=== PATIENT | male | born 1985 | race Caucasian/White ===

== ENCOUNTER 2019-07-18 20:22 | Emergency (ER) | payer OTHER ==
[2019-07-18] MEDS ORDERED: Diazepam TAB(*) 5 MG PO ONE (21:12)
--- NOTE | 2019-07-18 21:15 | ED ---
Seizure - HPI Summary HPI Summary: Patient complains of probable seizure while at [facility]. Denies prior history of seizures. Currently taking doxycycline 1 month for Lyme disease. Event was witnessed by who states patient convulsed his limbs, screwed up his face and had his eyes closed for unknown period of time. Episode self resolved, and after returning to consciousness patient did not recognize his or his surroundings for "a while". Patient is alert and oriented here in the ED, denies any prior symptoms. Also admits to chronic EtOH as he was working at a [employer] and told recently. States he has not had a drink for the past 2 days. Denies tremors, hallucinations, N/V, diaphoresis, abdominal pain, body aches. Patient states he has gone days before without drinking without issue. States he has been drinking more recently since he lost his job. Denies fever, cough, sore throat, CP, SOB, N/V/V abdominal pain, change in urine , change in BM. Medical history is Lyme disease, anxiety, panic attacks. Admits to marijuana use from a regulated dispensary. Denies recreational drug use. - History Of Current Complaint Chief Complaint: EDSeizure Time Seen by Provider: 07/18/19 20:55 Hx Obtained From: Patient, Family/Pension Consultant Onset/Duration: Sudden Onset, Lasting Minutes Severity Of Seizure: Self-Limited Location Of Seizure: All Extremities Aggravating Factor(s): Nothing Alleviating Factor(s): Spontaneous Resolution Associated Signs And Symptoms: Negative PMH/Surg Hx/FS Hx/Imm Hx Endocrine/Hematology History: Denies: Hx Anticoagulant Therapy Cardiovascular History: Denies: Hx Pacemaker/ICD History: Denies: Hx Dialysis Sensory History: Denies: Hx Eye Prosthesis Opthamlomology History: Denies: Hx Legally Blind EENT History: Denies: Hx Deafness Neurological History: Denies: Hx Dementia Psychiatric History: Reports: Hx Anxiety - Immunization History Immunizations Up to Date: Yes Infectious Disease History: No Infectious Disease History: Denies: Traveled Outside the [place] in Last 30 Days - Family History Known Family History: Positive: Non-Contributory - Social History Alcohol Use: None Substance Use Type: Reports: None Smoking Status (MU): Never Smoked Tobacco Review of Systems Constitutional: Negative Eyes: Negative ENT: Negative Cardiovascular: Negative Respiratory: Negative Gastrointestinal: Negative Genitourinary: Negative Musculoskeletal: Negative Skin: Negative Neurological: Negative Psychological: Normal All Other Systems Reviewed And Are Negative: Yes Physical Exam - Summary Physical Exam Summary: Neuro exam normal. Small laceration to lateral left tongue. Otherwise normal physical exam. Triage Information Reviewed: Yes Vital Signs On Initial Exam: Initial Vitals Temp Pulse Resp BP Pulse Ox 99.9 F 118 18 142/85 99 07/18/19 20:26 07/18/19 20:26 07/18/19 20:26 07/18/19 20:26 07/18/19 20:26 Vital Signs Reviewed: Yes Appearance: Positive: Well-Appearing Skin: Positive: Warm Head/Face: Positive: Normal Head/Face Inspection Eyes: Positive: Normal ENT: Positive: Other - Small laceration to lateral left tongue. Dental: Negative: Dental Fracture @, Bleeding Neck: Positive: Supple Respiratory/Lung Sounds: Positive: Clear to Auscultation Cardiovascular: Positive: Normal Abdomen Description: Positive: Nontender Musculoskeletal: Positive: Normal Neurological: Positive: Normal Psychiatric: Positive: Normal AVPU Assessment: Alert - Jermain Coma Scale Best Eye Response: 4 - Spontaneous Best Motor Response: 6 - Obeys Commands Best Verbal Response: 5 - Oriented Coma Scale Total: 15 Procedures - Sedation Patient Received Moderate/Deep Sedation with Procedure: No Diagnostics - Vital Signs Vital Signs Temp Pulse Resp BP Pulse Ox 07/18/19 20:26 99.9 F 118 18 142/85 99 - Laboratory Result Diagrams: 07/18/19 21:32 07/18/19 21:32 Lab Statement: Any lab studies that have been ordered have been reviewed, and results considered in the medical decision making process. Course/Dx - Course Course Of Treatment: Patient complains of probable seizure while at [facility]. Denies prior history of seizures. Currently taking doxycycline 1 month for Lyme disease. Event was witnessed by who states patient convulsed his limbs, screwed up his face and had his eyes closed for unknown period of time. Episode self resolved, and after returning to consciousness patient did not recognize his or his surroundings for "a while". Patient is alert and oriented here in the ED, denies any prior symptoms. Also admits to chronic EtOH as he was working at a [employer] and told recently. States he has not had a drink for the past 2 days. Denies tremors, hallucinations, N/V, diaphoresis, abdominal pain, body aches. Patient states he has gone days before without drinking without issue. States he has been drinking more recently since he lost his job. Denies fever, cough, sore throat, CP, SOB, N/V/ V abdominal pain, change in urine, change in BM. Medical history is Lyme disease, anxiety, panic attacks. Admits to marijuana use from a regulated dispensary. Denies recreational drug use. Vital signs within normal limits. Labs unremarkable. EtOH level normal. CT brain negative. EKG sinus rhythm, rate of 87, normal P axis. Likely seizure secondary to alcohol withdrawal. Patient has no other symptoms of tremor, diaphoresis, hallucinations, headache. Patient alert and oriented, calm and interactive. Patient given Valium 5 mg by mouth here in the ED. Patient wants to detox from alcohol. Rx for Librium taper for the next 4 days. Patient has been advised he cannot drink while taking Librium. Patient states he will comply. is pharmacist, states she understands. - Diagnoses Provider Diagnoses: Seizure, H/O ETOH abuse Discharge ED - Sign-Out/Discharge Documenting (check all that apply): Patient Departure - Discharge Plan Condition: Stable Disposition: HOME Prescriptions: chlordiazePOXIDE CAP* [Librium CAP*] 25 mg PO SEE INSTRUCTIONS 4 Days #13 cap MDD 6 tabs Patient Education Materials: Abuse of Alcohol (ED), Alcohol Withdrawal (ED) Referrals: Johann Tang MD [Primary Care Provider] - Additional Instructions: Take Librium taper as directed. Do not drink alcohol while taking Librium taper. Return to the ED for any new or worsening symptoms. Day 1: 50 mg every 8 hours Day 2: 25mg every 6h Day 3: 25mg twice daily Day 4: 25mg at night - Billing Disposition and Condition Condition: STABLE Disposition: Home
[2019-07-18 21:41] LABS: ABS Basophils 0.1 10^3/ul (0-0.2); ABS Lymphocytes 0.5 10^3/ul (1.0-4.8); ABS Monocytes 0.6 10^3/ul (0-0.8); ABS Neutrophils 9.3 10^3/ul (1.5-7.7); Eosinophil % 0.3 %; Hematocrit 42 % (42-52); Hemoglobin 14.4 g/dL (14.0-18.0); Lymphocyte % 4.3 %; Mean Corpuscular HGB Conc 34 g/dL (31-36); Mean Corpuscular Hemoglobin 32 pg (27-31); Mean Corpuscular Volume 93 fL (80-94); Mean Platelet Volume 7.2 fL (7.4-10.4); Nucleated Red Blood Cells % 0.2; Platelet Count 190 10^3/uL (150-450); Red Cell Distribution Width 13 % (10-15); White Blood Count 10.5 10^3/uL (3.5-10.8)
[2019-07-18 21:58] LABS: Albumin 4.4 g/dL (3.2-5.2); Albumin/Globulin Ratio 1.6 (1-3); BUN/Creatinine Ratio 8.7 (8-20); C Reactive Protein 1.31 mg/L (<8.01); Calcium 9.2 mg/dL (8.6-10.3); EGFR African American 100.8 (>60); EGFR Non-African American 83.3 (>60); Globulin 2.8 g/dL (2-4); Magnesium 2.1 mg/dL (1.9-2.7); Potassium 3.5 mmol/L (3.5-5.0); Total Bilirubin 0.7 mg/dL (0.2-1.0); Total Protein 7.2 g/dL (6.4-8.9)
[2019-07-18 22:17] LABS: Alcohol < 10 mg/dL (<10)
[2019-07-18 22:32] LABS: TSH (Thyroid Stimulating Horm) 2.36 mcIU/mL (0.34-5.60)
[2019-07-18 23:07] VITALS: BP 130/86
== END 2019-07-18 22:45 | disposition home or self-care (01) ==
LOC: ED 20:22
DX: R56.9 Unspecified convulsions (principal); F41.9 Anxiety disorder, unspecified; A69.20 Lyme disease, unspecified; Z79.899 Other long term (current) drug therapy
CPT/HCPCS: 36415; 70450; 80053; 80320; 83735; 84443; 85025; 86140; 93005; 99283; A9270-GY; G0480

== ENCOUNTER 2020-12-26 16:38 | Inpatient (IN) ==
[2020-12-26] MEDS ORDERED: diPHENhydraMINE 25 mg TAB PO ONE (17:38)
[2020-12-26 21:16] LABS: ABS Basophils 0.1 10^3/ul (0-0.2); ABS Lymphocytes 0.8 10^3/ul (1.0-4.8); ABS Monocytes 0.6 10^3/ul (0-0.8); ABS Neutrophils 6.5 10^3/ul (1.5-7.7); Eosinophil % 0.1 %; Hematocrit 40 % (42-52); Hemoglobin 13.7 g/dL (14.0-18.0); Lymphocyte % 10.5 %; Mean Corpuscular HGB Conc 34 g/dL (31-36); Mean Corpuscular Hemoglobin 30 pg (27-31); Mean Corpuscular Volume 87 fL (80-94); Mean Platelet Volume 8.5 fL (7.4-10.4); Platelet Count 208 10^3/uL (150-450); Red Cell Distribution Width 14 % (10-15)
[2020-12-26 21:19] LABS: Urine Appearance Clear; Urine Bilirubin Negative (Negative); Urine Blood Negative (Negative); Urine Color Straw; Urine Glucose Negative (Negative); Urine Ketones Negative (Negative); Urine Nitrite Negative (Negative); Urine Protein Negative (Negative); Urine Specific Gravity 1.009 (1.002-1.030); Urine Urobilinogen Negative (Negative)
[2020-12-26 21:29] LABS: ALT 22 U/L (7-52); AST 32 U/L (13-39); Albumin 4.6 g/dL (3.2-5.2); Alkaline Phosphatase 57 U/L (34-104); Anion Gap 8 mmol/L (2-11); Blood Urea Nitrogen 15 mg/dL (6-24); CO2 Carbon Dioxide 28 mmol/L (22-32); Calcium 9.1 mg/dL (8.6-10.3); Chloride 103 mmol/L (101-111); EGFR African American 97.4 (>60); EGFR Non-African American 80.5 (>60); Globulin 2.3 g/dL (2-4); Glucose 90 mg/dL (70-100); Potassium 3.7 mmol/L (3.5-5.0); Sodium 139 mmol/L (135-145); Total Protein 6.9 g/dL (6.4-8.9); Urine Benzodiazepine Screen None Detected (None Detect); Urine Cannabinoids Screen Presumptive Positive (None Detect); Urine Opiates Screen None Detected (None Detect)
[2020-12-26 21:40] LABS: Acetaminophen < 15 mcg/mL; Alcohol, S < 10 mg/dL (<10); Salicylate < 2.50 mg/dL (<30)
[2020-12-26 21:56] LABS: TSH Ultra Thyroid Stim Horm 0.41 mcIU/mL (0.34-5.60)
[2020-12-27] MEDS ORDERED: Nicotine PATCH 21 MG/24 HR PATCH ONE (08:42)
[2020-12-27] MEDS: Nicotine PATCH 21 MG/24 HR PATCH TRANSDERM SCH ×3 (08:46→12:03)
[2020-12-27] MEDS ORDERED: Al Hydrox/Mg Hydrox/Simet LIQ 30 ML UDC PO PRN (10:14)
[2020-12-27] MEDS: Nicotine GUM 4MG FRUIT FLAVOR PO PRN (19:23)
[2020-12-28 08:11] LABS: HDL Cholesterol 51.7 mg/dL
[2020-12-28] MEDS: Nicotine PATCH 21 MG/24 HR PATCH TRANSDERM SCH (08:35)
[2020-12-28] MEDS: Vitamin THERAPEUTIC TAB PO SCH (08:36)
[2020-12-28] MEDS: Saline NASAL SPRAY 0.65% BTL BOTH NARES PRN (23:02)
[2020-12-29] MEDS: Nicotine PATCH 21 MG/24 HR PATCH TRANSDERM SCH ×2 (05:57→13:18)
[2020-12-29] MEDS: Vitamin THERAPEUTIC TAB PO SCH (09:01)
[2020-12-29] MEDS: Nicotine GUM 4MG FRUIT FLAVOR PO PRN (21:30)
[2020-12-30] MEDS: Nicotine PATCH 21 MG/24 HR PATCH TRANSDERM SCH (06:29)
[2020-12-30] MEDS: Vitamin THERAPEUTIC TAB PO SCH (07:55)
[2020-12-30] MEDS: Nicotine GUM 4MG FRUIT FLAVOR PO PRN ×2 (15:15→17:20)
[2020-12-31] MEDS: Nicotine GUM 4MG FRUIT FLAVOR PO PRN (05:41)
[2020-12-31] MEDS: Nicotine PATCH 21 MG/24 HR PATCH TRANSDERM SCH (07:48)
[2020-12-31] MEDS: Vitamin THERAPEUTIC TAB PO SCH (07:48)
[2020-12-31] MEDS: Nicotine Lozenge mini 4 MG LOZNG.MINI MT PRN ×3 (14:46→19:28)
[2021-01-01] MEDS: Nicotine Lozenge mini 4 MG LOZNG.MINI MT PRN ×6 (01:12→20:46)
[2021-01-01] MEDS: Vitamin THERAPEUTIC TAB PO SCH (08:03)
[2021-01-01] MEDS: Nicotine PATCH 21 MG/24 HR PATCH TRANSDERM SCH (08:03)
[2021-01-01] MEDS: Nicotine GUM 4MG FRUIT FLAVOR PO PRN (12:35)
[2021-01-01] MEDS: Saline NASAL SPRAY 0.65% BTL BOTH NARES PRN (20:47)
[2021-01-02] MEDS: Nicotine Lozenge mini 4 MG LOZNG.MINI MT PRN ×6 (06:34→21:55)
[2021-01-02] MEDS: Vitamin THERAPEUTIC TAB PO SCH (08:19)
[2021-01-02] MEDS: Nicotine PATCH 21 MG/24 HR PATCH TRANSDERM SCH (08:20)
[2021-01-02] MEDS: CMC:OMEGA-3 FATTY ACID 1000 mg(NF) PO SCH (10:10)
[2021-01-02] MEDS: Nicotine GUM 4MG FRUIT FLAVOR PO PRN ×4 (10:12→20:58)
[2021-01-03] MEDS: Nicotine GUM 4MG FRUIT FLAVOR PO PRN (05:48)
[2021-01-03] MEDS: Nicotine PATCH 21 MG/24 HR PATCH TRANSDERM SCH (07:53)
[2021-01-03] MEDS: CMC:OMEGA-3 FATTY ACID 1000 mg(NF) PO SCH (07:54)
[2021-01-03] MEDS: Vitamin THERAPEUTIC TAB PO SCH (07:54)
[2021-01-03] MEDS: Nicotine Lozenge mini 4 MG LOZNG.MINI MT PRN ×5 (07:56→18:08)
[2021-01-04] MEDS: Nicotine Lozenge mini 4 MG LOZNG.MINI MT PRN ×5 (04:57→20:16)
[2021-01-04] MEDS: Nicotine GUM 4MG FRUIT FLAVOR PO PRN ×3 (04:57→21:40)
[2021-01-04] MEDS: CMC:OMEGA-3 FATTY ACID 1000 mg(NF) PO SCH (07:41)
[2021-01-04] MEDS: Vitamin THERAPEUTIC TAB PO SCH (07:41)
[2021-01-04] MEDS: Nicotine PATCH 21 MG/24 HR PATCH TRANSDERM SCH (07:42)
[2021-01-05] MEDS: Nicotine GUM 4MG FRUIT FLAVOR PO PRN ×2 (05:11→12:51)
[2021-01-05] MEDS: Nicotine PATCH 21 MG/24 HR PATCH TRANSDERM SCH (07:50)
[2021-01-05] MEDS: Vitamin THERAPEUTIC TAB PO SCH (07:51)
[2021-01-05] MEDS: CMC:OMEGA-3 FATTY ACID 1000 mg(NF) PO SCH (07:52)
[2021-01-05] MEDS: Nicotine Lozenge mini 4 MG LOZNG.MINI MT PRN ×3 (15:33→22:56)
[2021-01-06] MEDS: Saline NASAL SPRAY 0.65% BTL BOTH NARES PRN ×3 (02:37→21:16)
[2021-01-06] MEDS: Nicotine Lozenge mini 4 MG LOZNG.MINI MT PRN ×5 (08:35→21:15)
[2021-01-06] MEDS: Vitamin THERAPEUTIC TAB PO SCH (08:35)
[2021-01-06] MEDS: CMC:OMEGA-3 FATTY ACID 1000 mg(NF) PO SCH (08:35)
[2021-01-06] MEDS: Nicotine PATCH 21 MG/24 HR PATCH TRANSDERM SCH (08:39)
[2021-01-06] MEDS: Nicotine GUM 4MG FRUIT FLAVOR PO PRN (12:44)
[2021-01-07] MEDS: Saline NASAL SPRAY 0.65% BTL BOTH NARES PRN (02:32)
[2021-01-07] MEDS: Nicotine Lozenge mini 4 MG LOZNG.MINI MT PRN ×4 (03:42→20:16)
[2021-01-07] MEDS: Nicotine GUM 4MG FRUIT FLAVOR PO PRN ×2 (04:55→19:26)
[2021-01-07] MEDS: CMC:OMEGA-3 FATTY ACID 1000 mg(NF) PO SCH (08:53)
[2021-01-07] MEDS: Vitamin THERAPEUTIC TAB PO SCH (08:54)
[2021-01-07] MEDS: Nicotine PATCH 21 MG/24 HR PATCH TRANSDERM SCH (08:54)
[2021-01-07 17:14] VITALS: BP 127/71
[2021-01-08] MEDS: Nicotine Lozenge mini 4 MG LOZNG.MINI MT PRN ×3 (03:20→09:30)
[2021-01-08] MEDS: Saline NASAL SPRAY 0.65% BTL BOTH NARES PRN ×2 (03:20→11:27)
[2021-01-08] MEDS: Nicotine GUM 4MG FRUIT FLAVOR PO PRN (05:08)
[2021-01-08] MEDS: Nicotine PATCH 21 MG/24 HR PATCH TRANSDERM SCH (06:49)
[2021-01-08] MEDS: Vitamin THERAPEUTIC TAB PO SCH (09:31)
[2021-01-08] MEDS: CMC:OMEGA-3 FATTY ACID 1000 mg(NF) PO SCH (09:32)
== END 2021-01-08 13:00 | disposition home or self-care (01) ==
LOC: ED 16:38 → BSU 18:23 → ED 12-27 02:29
PROVIDERS: ADMIT Psychiatry & Neurology Psychiatry; ATTEND Psychiatry & Neurology Psychiatry

== ENCOUNTER 2021-02-13 11:45 | Inpatient (IN) ==
[2021-02-13 12:37] LABS: Urine Appearance Clear; Urine Bilirubin Negative (Negative); Urine Blood Negative (Negative); Urine Color Yellow; Urine Glucose Negative (Negative); Urine Ketones Negative (Negative); Urine Nitrite Negative (Negative); Urine Protein Negative (Negative); Urine Specific Gravity 1.019 (1.002-1.030); Urine Urobilinogen Negative (Negative)
[2021-02-13 12:43] LABS: ABS Basophils 0.1 10^3/ul (0-0.2); ABS Eosinophils 0.1 10^3/ul (0-0.6); ABS Lymphocytes 0.8 10^3/ul (1.0-4.8); ABS Monocytes 0.6 10^3/ul (0-0.8); ABS Neutrophils 5.2 10^3/ul (1.5-7.7); Eosinophil % 1.1 %; Hematocrit 40 % (42-52); Hemoglobin 13.8 g/dL (14.0-18.0); Lymphocyte % 12.4 %; Mean Corpuscular HGB Conc 34 g/dL (31-36); Mean Corpuscular Hemoglobin 30 pg (27-31); Mean Corpuscular Volume 87 fL (80-94); Mean Platelet Volume 7.7 fL (7.4-10.4); Platelet Count 233 10^3/uL (150-450); Red Blood Count 4.64 10^6 /uL (4.18-5.48); Red Cell Distribution Width 14 % (10-15); White Blood Count 6.8 10^3/uL (3.5-10.8)
[2021-02-13 12:54] LABS: Albumin 4.3 g/dL (3.2-5.2); Anion Gap 5 mmol/L (2-11); CO2 Carbon Dioxide 29 mmol/L (22-32); Calcium 9.2 mg/dL (8.6-10.3); Chloride 102 mmol/L (101-111); Potassium 3.9 mmol/L (3.5-5.0); Sodium 136 mmol/L (135-145)
[2021-02-13 13:00] LABS: ALT 25 U/L (7-52); AST 28 U/L (13-39); Albumin/Globulin Ratio 1.9 (1-3); Alkaline Phosphatase 47 U/L (35-149); Blood Urea Nitrogen 12 mg/dL (6-24); EGFR African American 94.3 (>60); EGFR Non-African American 77.9 (>60); Globulin 2.3 g/dL (2-4); Glucose 92 mg/dL (70-100); Total Protein 6.6 g/dL (6.4-8.9)
[2021-02-13 13:27] LABS: Urine Benzodiazepine Screen None Detected (None Detect); Urine Cannabinoids Screen Presumptive Positive (None Detect); Urine Opiates Screen None Detected (None Detect)
[2021-02-13 14:06] LABS: Acetaminophen < 15 mcg/mL; Alcohol, S < 10 mg/dL (<10); Salicylate < 2.50 mg/dL (<30)
[2021-02-13] MEDS ORDERED: Nicotine GUM 2MG FRUIT FLAVOR PO ONE (21:31)
[2021-02-13 22:05] LABS: Lithium 0.93 mmol/L (0.6-1.2)
[2021-02-13] MEDS: Nicotine GUM 2MG FRUIT FLAVOR PO PRN (23:36)
[2021-02-14] MEDS: Nicotine PATCH 14 MG/24 HR PATCH TRANSDERM SCH (07:09)
[2021-02-14 08:42] LABS: HDL Cholesterol 49.9 mg/dL
[2021-02-14] MEDS: Nicotine GUM 2MG FRUIT FLAVOR PO PRN ×4 (11:02→23:14)
[2021-02-14] MEDS: Nicotine Lozenge mini 2 MG LOZNG.MINI MT PRN ×3 (18:31→23:14)
[2021-02-14] MEDS ORDERED: Al Hydrox/Mg Hydrox/Simet LIQ 30 ML UDC ONE (20:42)
[2021-02-15] MEDS ORDERED: Al Hydrox/Mg Hydrox/Simet LIQ 30 ML UDC PO PRN (00:22)
[2021-02-15] MEDS: Nicotine GUM 2MG FRUIT FLAVOR PO PRN ×3 (04:37→14:57)
[2021-02-15] MEDS: Nicotine PATCH 14 MG/24 HR PATCH TRANSDERM SCH ×2 (06:00→07:13)
[2021-02-15] MEDS: Nicotine Lozenge mini 2 MG LOZNG.MINI MT PRN ×3 (08:58→14:57)
[2021-02-15 09:42] VITALS: BP 121/69
== END 2021-02-15 16:37 | disposition home or self-care (01) ==
LOC: ED 11:45 → BSU 16:31
PROVIDERS: ADMIT Psychiatry & Neurology Psychiatry; ATTEND Psychiatry & Neurology Psychiatry